=== PATIENT | female | born 1970 | race Asian ===

== ENCOUNTER 2022-08-11 22:55 | Emergency (ER) | payer OTHER ==
[2022-08-11] MEDS ORDERED: KETOROLAC TROMETHAMINE 30 MG/ML VIAL IV STA (23:10)
[2022-08-11] MEDS ORDERED: ONDANSETRON HCL INJ 2MG/ML 2ML 2 MG/ML VIAL IV STA (23:10)
[2022-08-11] MEDS ORDERED: Morphine 2mg Syringe 2 MG/ML SYR IV ONE (23:15)
[2022-08-11] MEDS ORDERED: KETOROLAC TROMETHAMINE 30 MG/ML VIAL ONE (23:26)
[2022-08-11] MEDS ORDERED: SODIUM CHLORIDE 0.9% 1000ML 1,000 ML ONE (23:27)
[2022-08-11] MEDS ORDERED: FLOMAX0.4 MG PO (23:58)
[2022-08-11] MEDS ORDERED: KETOROLAC TROME10 MG PO (23:58)
[2022-08-12] MEDS ORDERED: Morphine 4mg INJECTION 4 MG/ML INJ ONE (00:26)
[2022-08-12] MEDS ORDERED: ONDANSETRON HCL INJ 2MG/ML 2ML 2 MG/ML VIAL ONE (00:26)
[2022-08-12 02:00] VITALS: BP 143/88
== END 2022-08-12 02:00 | disposition home or self-care (01) ==
LOC: FSED 23:11
DX: N20.0 Calculus of kidney (principal); E11.9 Type 2 diabetes mellitus without complications
CPT/HCPCS: 74176; 80053; 80307; 85025; 96374; 96375; 96376; 99284; J1885; J2270; J2405; J7030